=== PATIENT | female | born 1990 | race Hispanic/Latino ===

== ENCOUNTER → 2019-04-27 13:00 | Outpatient (CLI) | payer OTHER, SELFPAY ==
--- NOTE | 2019-04-27 13:01 | DI.RAD.S_ITS ---
PROCEDURE: XR HAND LT MIN 3V INDICATIONS: dec ROM, pain, swelling, bruising, r/o fx/dislocation TECHNIQUE: 3 views of the hand(s) acquired. COMPARISON: None. FINDINGS: Bones: There is an apparent minimally displaced fracture involving the proximal aspect of the distal phalanx of the 2nd finger, seen only on the lateral view. No additional fractures or dislocations. Carpal bones are normally aligned. No suspicious bony lesions. The several nutrient foramina are seen, including involving the proximal phalanx of the 2nd finger, which are normal, benign findings. Soft tissues: No suspicious soft tissue calcifications. IMPRESSION: Apparent minimally displaced 2nd finger fracture. Please correlate with patient history and focal tenderness. Dictated by: Khoi Ruiz M.D. on 04/27/2019 at 12:24 Approved by: Khoi Ruiz M.D. on 04/27/2019 at 12:31
== END ==
PROVIDERS: Visit Provider Physician Assistant
DX: S69.92XA Unspecified injury of left wrist, hand and finger(s), initial encounter (principal); X58.XXXA Exposure to other specified factors, initial encounter
CPT/HCPCS: 73130

== ENCOUNTER → 2019-05-06 18:05 | Outpatient (CLI) | payer OTHER, SELFPAY ==
[2019-05-06 20:08] LABS: Hepatitis B Surface Antigen NEGATIVE s/c (NEGATIVE)
[2019-05-06 20:20] LABS: HIV 1 & 2 Ab/Ag 4th Gen Combo NEGATIVE (NEGATIVE); Hep C Virus Ab w/Reflex Quant NEGATIVE s/c (NEGATIVE)
[2019-05-06 21:06] LABS: Urine N gonorrhoeae NOT DETECTED
[2019-05-06 21:11] LABS: Urine Chlamydia NOT DETECTED
[2019-05-09 14:34] LABS: HSV 1 IgM Screen Negative (Negative); HSV 2 IgM Screen Negative (Negative)
[2019-05-09 18:00] LABS: RPR Screen Nonreactive (Nonreactive)
== END ==
PROVIDERS: Visit Provider Nurse Practitioner
DX: Z11.3 Encounter for screening for infections with a predominantly sexual mode of transmission (principal)
CPT/HCPCS: 36415; 86592; 86695; 86696; 86803; 87340; 87389; 87491; 87591

== ENCOUNTER 2019-06-22 18:31 | Emergency (ER) | payer OTHER, SELFPAY ==
[2019-06-22 18:37] VITALS: BP 115/80; PULSE 72; RESP 16; TEMP 36.7; O2SAT 100; BMI 26.9
--- NOTE | 2019-06-22 18:37 | ED.GENADULT ---
HPI - General Adult General Chief complaint: Neck Pain/Injury Stated complaint: left side neck swelling for a couple of days Time Seen by Provider: 06/22/19 18:37 Source: patient Mode of arrival: Ambulatory Limitations: no limitations History of Present Illness HPI narrative: 29-year-old female comes of complaint of swelling of the left side of the neck underneath the mandible. Patient states that she has had a couple episodes in the past but today began while she was eating tacos. Patient states that it is painful but not exquisitely. She states not really the bone. Not really in the teeth but is sort of in the soft tissue under the tongue on the same side. No fevers, no swelling of the oropharynx. She denies any difficulty with speech changes voice. She denies any pus or foul taste in her mouth. Patient states that she has not had any redness or skin changes. She denies any other symptoms. She states a little bit radiation to her ear she denies any other medical issues, no prior surgeries. No allergies to medications she is not taking anything for pain today. Related Data Previous Rx's Medication Instructions Recorded azithromycin 500 mg tablet 1,000 mg PO ONCE #2 tab 05/06/19 doxycycline hyclate 100 mg PO BID #20 cap 06/22/19 Allergies Allergy/AdvReac Type Severity Reaction Status Date / Time No Known Drug Allergies Allergy Verified 05/06/19 16:50 Review of Systems Review of Systems ROS Unobtainable: All systems reviewed & are unremarkable except as noted in HPI and below Patient History Social History Smoking Status: Never smoker Smoking Status: Never smoker Exam Narrative Exam Narrative: GEN: well nourished, well appearing female, alert and oriented x 3, patient appears to be in mild distress. HEENT: Atraumatic, pupils are equal round reactive to light, extraocular movements are intact, nares are clear, TMs are clear with no fluid, there is no conjunctival pallor. Throat is clear without any exudates, erythema, tonsillar enlargement or uvular deviation, patient has swelling underneath the left mandible, area feels full I can feel a small area of swelling about 1cm in size, non-tender, mobile, no purulent drainage. No swelling of oropharynx or other changes to skin. HEART: Regular rate and rhythm without murmur, clicks, rubs. LUNGS:Lungs clear to auscultation, no wheezes, rales, crackles, chest moves symmetrically ABD:bowel sounds normal, soft, non-tender, no guarding, rebound, rigidity, no masses noted, no hepatosplenomegaly MSCL: Full range of motion, normal gait NEURO:CN 2-12 intact, sensation normal SKIN: No erythema. Initial Vital Signs Initial Vital Signs: Vital Signs Temperature 98.0 F 06/22/19 18:37 Pulse Rate 72 06/22/19 18:37 Respiratory Rate 16 06/22/19 18:37 Blood Pressure 115/80 06/22/19 18:37 Pulse Oximetry 100 06/22/19 18:37 Course Orders Ordered: ED Orders 06/22/19 18:56 US soft tissue head and neck Stat 06/22/19 19:11 Basic Metabolic Panel Stat Complete Blood Count AUTO DIFF Stat Discontinued Medications Ibuprofen (Advil) 800 mg PO NOW ONE Stop: 06/22/19 18:58 Last Admin: 06/22/19 19:30 Dose: 800 mg Documented by: TURNER Vital Signs Vital signs: Vital Signs - 8 hr 06/22/19 18:37 06/22/19 20:27 Temperature 98.0 F 98.8 F Pulse Rate 72 91 H Respiratory Rate 16 18 Blood Pressure 115/80 122/66 Pulse Oximetry 100 99 Medical Decision Making Lab Data Lab results reviewed: Yes I reviewed the patient's lab results. Result diagrams: 06/22/19 19:11 06/22/19 19:11 Labs: Lab Results 06/22/19 06/22/19 Range/Units 19:11 19:11 WBC 8.2 (4.5-11.0) X10^3/uL RBC 4.59 (4.0-5.2) X10^6/uL Hgb 14.7 (12.0-16.0) g/dL Hct 41.9 (36-46) % MCV 91.2 (80-100) fL MCH 32.1 (26-34) PG MCHC 35.2 (30-36) % RDW 12.8 (11.6-14.8) % Plt Count 202 (150-400) X10^3/uL Neut % (Auto) 63.0 (50-75) % Lymph % (Auto) 29.1 (25-40) % Foard % (Auto) 6.6 (3-14) % Eos % (Auto) 0.9 L (2-4) % Baso % (Auto) 0.4 (0-2) % Neut # (Auto) 5200 (4704-4110) /uL Lymph # (Auto) 2400 (4800-2762) /uL Foard # (Auto) 500 (0-900) /uL Eos # (Auto) 100 (0-450) /uL Baso # (Auto) 0 (0-100) /uL Sodium 141 (137-145) mmol/L Potassium 4.2 (3.4-5.1) mmol/L Chloride 102 (98-107) mmol/L Carbon Dioxide 31 (22-32) mmol/L BUN 14 (7-17) mg/dL Creatinine 0.70 (0.52-1.04) mg/dL Estimated GFR > 60.0 (>60) mL/min BUN/Creatinine Ratio 20.0 (6-22) Glucose 105 H (70-100) mg/dL Calcium 9.5 (8.4-10.2) mg/dL Imaging Data soft tissue neck US: Attestation: I personally reviewed and interpreted this imaging study as follows: Radiologist's Impression: [place] [address] Ultrasound Report Signed Patient: Yaneth Gonsalez [facility]#: [id number] : 1990Acct:[id number] Age/Sex: 29 / FDate of Service: 06/22/19 Loc: ED Accession Number: [id number] Procedure: US soft tissue head and neck Ordering Provider: Jennifer Krueger D.O. PROCEDURE: US SOFT TISSUE HEAD AND NECK INDICATIONS: swelling, left submandibular, ? salivary gland TECHNIQUE: Real-time scanning was performed of the neck region of interest, with image documentation. COMPARISON: None. FINDINGS: 2 enlarged lymph nodes in the region of interest in the left neck. These measure 2 x 1 x 2.1 cm, cortex 0.5 cm and 2.1 x 0.7 x 1.5 cm, cortex 0.5 cm. No loculated fluid collection. The submandibular gland is within normal limits. IMPRESSION: Two enlarged lymph nodes in the left submandibular neck at the site of swelling. Dictated by: Cristopher Grubbs M.D. on 06/22/2019 at 19:53 Approved by: Cristopher Grubbs M.D. on 06/22/2019 at 19:56 [facility] Narrative Medical decision making narrative: Discussed with patient Um she has what appears to be some lymphadenopathy but no clear changes to the gland itself. Lymph node is slightly tender and discussed doing a short course of antibiotics to see if this improves she has not had any upper respiratory infection or other changes that would likely cause them to be increased in size. Discussed she could try some tartar lemon candies but no obvious signs of obstruction or changes on her ultrasound for salivary gland obstruction. Patient and I discussed signs and symptoms to watch for reasons to return emergently and if her symptoms are not improving with antibiotics she does need follow-up and further evaluation particularly if they are increasing in size or not decreasing in size with treatment. Discharge Plan Departure Patient Disposition: Home Clinical Impression: Enlarged lymph node in neck Discharge Date/Time: 06/22/19 20:27 Instructions: DI for Lymphadenopathy Activity Restrictions/Additional Instructions: Follow-up with primary care in the next week for recheck, if lymph nodes have not improved in size they may do some additional testing. Take antibiotics until gone. You may take ibuprofen or tylenol as prescribed. If your lymph nodes continue to enlarge, become more painful, become soft if you have fevers greater than 100.4 F, difficulty swallowing return to the emergency department. Prescriptions: New doxycycline hyclate 100 mg capsule 100 mg PO BID Qty: 20 RF: 0 No Action azithromycin 500 mg tablet 1,000 mg PO ONCE Qty: 2 RF: 0
--- NOTE | 2019-06-22 18:56 | DI.US.S_ITS ---
PROCEDURE: US SOFT TISSUE HEAD AND NECK INDICATIONS: swelling, left submandibular, ? salivary gland TECHNIQUE: Real-time scanning was performed of the neck region of interest, with image documentation. COMPARISON: None. FINDINGS: 2 enlarged lymph nodes in the region of interest in the left neck. These measure 2 x 1 x 2.1 cm, cortex 0.5 cm and 2.1 x 0.7 x 1.5 cm, cortex 0.5 cm. No loculated fluid collection. The submandibular gland is within normal limits. IMPRESSION: Two enlarged lymph nodes in the left submandibular neck at the site of swelling. Dictated by: Cristopher Grubbs M.D. on 06/22/2019 at 19:53 Approved by: Cristopher Grubbs M.D. on 06/22/2019 at 19:56
[2019-06-22 19:18] LABS: Add Manual Diff / Slide Review NO; Basophils Absolute Auto 0 /uL (0-100); Basophils Percent Auto 0.4 % (0-2); Eosinophils Absolute Auto 100 /uL (0-450); Eosinophils Percent Auto 0.9 % (2-4); Hematocrit 41.9 % (36-46); Hemoglobin 14.7 g/dL (12.0-16.0); Lymphocytes Absolute Auto 2400 /uL (1100-4500); Lymphocytes Percent Auto 29.1 % (25-40); Mean Corpuscular HGB Conc 35.2 % (30-36); Mean Corpuscular Hemoglobin 32.1 PG (26-34); Mean Corpuscular Volume 91.2 fL (80-100); Monocytes Absolute Auto 500 /uL (0-900); Monocytes Percent Auto 6.6 % (3-14); Neutrophils Absolute Auto 5200 /uL (1500-7000); Platelet Count 202 X10^3/uL (150-400); Red Blood Cell Count 4.59 X10^6/uL (4.0-5.2); Red Cell Distribution Width 12.8 % (11.6-14.8); White Blood Cell Count 8.2 X10^3/uL (4.5-11.0)
[2019-06-22] MEDS: IBUPROFEN 400 MG TABLET 800 MG PO (19:30)
[2019-06-22 19:31] LABS: Blood Urea Nitrogen 14 mg/dL (7-17); Calcium 9.5 mg/dL (8.4-10.2); Carbon Dioxide 31 mmol/L (22-32); Chloride 102 mmol/L (98-107); Estimated Glomerular Filt Rate > 60.0 mL/min (>60); Glucose 105 mg/dL (70-100); HEMOLYSIS < 15 (0-50); Potassium 4.2 mmol/L (3.4-5.1); Sodium 141 mmol/L (137-145)
[2019-06-22 20:27] VITALS: BP 122/66; PULSE 91; RESP 18; TEMP 37.1; O2SAT 99
== END 2019-06-22 20:27 | disposition home or self-care (01) ==
PROVIDERS: Emergency Provider Emergency Medicine
DX: R59.0 Localized enlarged lymph nodes (principal)
CPT/HCPCS: 36415; 76536; 80048; 85025; 99284

== ENCOUNTER → 2019-07-09 20:05 | Outpatient (CLI) | payer OTHER, SELFPAY | PROVIDERS: Visit Provider Physician Assistant | DX: J02.9 Acute pharyngitis, unspecified (principal) | CPT/HCPCS: 87070 ==

== ENCOUNTER → 2019-08-01 19:10 | Outpatient (CLI) | payer OTHER, SELFPAY ==
[2019-08-01 20:59] LABS: Urine N gonorrhoeae NOT DETECTED
[2019-08-01 21:02] LABS: Urine Chlamydia NOT DETECTED
== END ==
PROVIDERS: Visit Provider Physician Assistant
DX: R30.0 Dysuria (principal); J02.9 Acute pharyngitis, unspecified
CPT/HCPCS: 87070; 87077; 87086; 87210; 87491; 87591

== ENCOUNTER → 2023-08-30 16:37 | Outpatient (CLI) | payer BC, SELFPAY | PROVIDERS: Visit Provider Nurse Practitioner Family | DX: R39.9 Unspecified symptoms and signs involving the genitourinary system (principal); R10.9 Unspecified abdominal pain | CPT/HCPCS: 87077; 87086 ==